=== PATIENT | female | born 1970 | race Caucasian/White ===

== ENCOUNTER 2017-02-11 10:35 | Emergency (ER) | payer BC ==
--- NOTE | 2017-02-11 11:02 | ERNOTE ---
Chest Pain/Cardiac HPI Date of Service: 02/11/17 Time Seen by Provider: 02/11/17 10:47 Source: patient Exam Limitations: no limitations Allergies/Adverse Reactions: Allergies Penicillins Allergy (Mild, Verified 02/11/17 10:52) Hives Sulfa (Sulfonamide Antibiotics) Allergy (Mild, Verified 02/11/17 10:52) Hives Home Medications: HOME MEDICATIONS Atenolol [Tenormin (Atenolol)] 100 mg PO DAILY 08/30/13 [Last Taken Unknown] Cyclobenzaprine HCl [Flexeril] 10 mg PO HS 08/30/13 [Last Taken Unknown] Topiramate [Topiragen] 200 mg PO DAILY 08/30/13 [Last Taken Unknown] buPROPion HCL [Wellbutrin] 100 mg PO DAILY 08/30/13 [Last Taken Unknown] Gabapentin 300 mg PO BID 09/15/13 [Last Taken Unknown] HYDROmorphone HCL [Dilaudid] 2 mg PO Q6H PRN 09/18/13 [Last Taken Unknown] Narrative: Pt. comes in with c/o mid-sternal chest pain since 0300 this am. Pt. states that her pain is dull and started as abdominal pain and settled in her chest and has remained. Pt. states that when her pain started she became anxious and was breathing harder and then her fingertips and face became tingling and numb and she developed a headache. Pt. states that the numbness, tingling, anxiety, and headache has resolved but she still has the chest heaviness and abd discomfort. Pt. also states that she had some nausea after all of the other symptoms started resolving but she does not have nausea now. Pt. also states that she has not had a bowel movement for over a week and she has had constipation for all of her life and was also diagnosed with IBS. 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 Review of Systems - Review of Systems Constitutional: Present: diaphoresis. Absent: fever, chills, weakness, fatigue , malaise, decreased activity level EYE: Present: no symptoms reported ENT: Present: no symptoms reported Respiratory: Present: no symptoms reported. Absent: shortness of breath, cough , wheezing Cardiology: Present: chest pain, other - fast heart beat. Absent: palpitations , syncope, edema, claudication Gastrointestinal/Abdominal: Present: nausea, constipation, abdominal pain, eating less, drinking less. Absent: vomiting, diarrhea Genitourinary: Present: no symptoms reported. Absent: frequency, pain, dysuria , decreased urinary output Musculoskeletal: Present: no symptoms reported. Absent: back pain, neck pain, joint pain Skin: Present: no symptoms reported. Absent: rash, change in color Neurological: Present: anxiety, headache, numbness, tingling. Absent: depressed , dizziness/light-headedness, weakness, tremors All Other Systems: All systems neg except as marked - Patient's Past Medical History Patient History - Medical: Anxiety, Chronic Pain, Depression, Migraines, Other - Factor V Patient History - Cardiac/Respiratory: Deep Vein Thrombosis - upper extremity Physical Exam - Physical Exam General Appearance: Present: wd/wn, alert, no apparent distress Eye Exam: Normal inspection: bilateral, PERRL: bilateral, EOMI: bilateral Ears, Nose, Throat: Present: normal ENT inspection, normal pharynx Neck: Present: normal inspection, nontender. Absent: lymphadenopathy (R), lymphadenopathy (L) Respiratory: Present: no respiratory distress, normal breath sounds, no accessory muscle use, chest nontender, lungs clear. 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 Absent: pallor, skin rash ED Progress - Date and Time Seen: Date and Time: 02/11/17 12:46 Feel that chest pressure is from the intrabdominal pressure secondary to the severe constipation and fecal impaction. Educated pt. on constipation and am going to have pt. take miralax daily without PRN. - Results and Orders Patient's Lab Results:: I have reviewed the patient's lab results. - Vital Signs Patient's Vital Signs:: I have reviewed the patient's vital signs. - EKG EKG: NSR EKG read: Reviewed by me EKG Comments: interpretted by Dr Blue - X-Ray X-Ray #1 X-Ray: chest Interpretation: Interp. by me X-ray Comments: no acute X-Ray #2 X-Ray: abdomen Interpretation: Interp. by me X-ray Comments: severe stool retention non obstructive bowel gas pattern - Progress/Reassessment Progress:: Improved Departure - Departure Clinical Impression: Anxiety Constipation Qualifiers: Constipation type: unspecified constipation type Qualified Code(s): K59.00 - Constipation, unspecified Disposition: Home self-care Condition: Good Instructions: Constipation, Adult, [id number], Panic Attacks, [id number] Additional Instructions: Please take miralax daily and do not stop unless instructed by your primary provider, and follow up with primary provider in 2-3 days. Referrals: Navdeep Kumar MD [Primary Care Provider] -
--- OUTSIDE RECORDS SUMMARY | 2017-02-11 11:03 | XMS REPORT | Continuity of Care Document ---
:1970 Author Organization [facility] ([facility]) Address [address] [place] [address] Phone [phone] Care Team Providers Name Role Phone Stephanie Grant Primary Care Provider [phone] Source Comments This disclosure is being made pursuant to the Care Everywhere program, applicable federal and state laws, and may not contain all informaitonavailable regarding this patient.[facility] ([facility]) Active Allergies and Adverse Reactions Allergen Noted Date Severity Reactions Comments Penicillins 08/06/2010 Urticaria (Hives) Sulfa (Sulfonamide Antibiotics) 08/06/2010 Urticaria (Hives) Current Medications Prescription Sig. Disp. Refills Start Date End Date Status topiramate (TOPAMAX) 200 mg Take 200 mg by Active tablet mouth daily. ALPRAZolam (XANAX) 1 mg Take 1 mg by Active tablet mouth at bedtime as needed. norethindrone-ethinyl Take 1 Tab by Active estradiol (GILDESS FE) 1 mouth daily. mg-20 mcg per tablet hyoscyamine (HYOMAX) 0.125 Take 125 mcg by Active mg tablet mouth every 4 hours as needed. hydrochlorothiazide Take 12.5 mg by Active (MICROZIDE) 12.5 mg capsule mouth daily. almotriptan (AXERT) 12.5 mg Take 12.5 mg by Active tablet mouth once when needed. may repeat in 2 hours if needed atenolol (TENORMIN) 50 mg Take 50 mg by Active tablet mouth daily. cyclobenzaprine (FLEXERIL) Take 10 mg by Active 10 mg tablet mouth 3 times daily as needed. Indications: Muscle Spasm nabumetone (RELAFEN) 750 mg Take 1 Tab by 180 Tab 0 08/06/2010 Active tablet mouth 2 times daily. Indications: wrist and neck pain Active Problems Problem Noted Date HTN (hypertension) 08/06/2010 Migraine headache 08/06/2010 Carpal tunnel syndrome 08/06/2010 Social History Tobacco Use Types Packs/Day Years Used Date Never Smoker Alcohol Use Drinks/Week oz/Week Comments Yes one glass of wine a month Last Filed Vital Signs Vital Sign Reading Time Taken Blood Pressure 132/71 08/06/2010 8:56 AM CDT Pulse 74 08/06/2010 8:56 AM CDT Temperature 36.8 C (98.2 F) 08/06/2010 8:56 AM CDT Respiratory Rate - - Height 1.66 m (5' 5.35") 08/06/2010 8:56 AM CDT Weight 51 kg (112 lb 7 oz) 08/06/2010 8:56 AM CDT Body Mass Index 18.51 08/06/2010 8:56 AM CDT Oxygen Saturation - - Plan of Care Health Maintenance Due Date Last Done Comments Hepatitis B Vaccine (1 of 3 - Primary Series) 1970 Tdap Vaccine 1980 Lipid Disorder Screening 1987 MMR Vaccine 1987 Td Vaccine 1987 Cervical Cancer Screening 1999 Mammogram 2009 Influenza Vaccine: Seasonal (#1) 05/16/2016 Results from Last 3 Months Not on file
[2017-02-11 11:07] LABS: Hematocrit 40.6 % (37.0-47.0); Hemoglobin 13.5 gm/dL (12.5-16.0); Mean Cell Volume 93.5 fl (78-100); Mean Corpuscular Hemoglobin 31.1 pg (27-31); Mean Corpuscular Hgb Conc 33.3 g/dl (32-36); Mean Platelet Volume 10.6 fl (6.0-9.5); Neutrophil # 3.9 K/mm3 (1.3-6.0); Neutrophil % 70.3 % (42-75.0); Platelet Count 186 K/mm3 (150-450); Red Blood Count 4.34 M/mm3 (4.2-5.4); Red Cell Distribution Width 12.8 % (11.5-14.0); White Blood Count 5.6 K/mm3 (4.0-10.5)
[2017-02-11 11:20] LABS: Prothrombin Time (Patient) 10.7 Seconds (9.4-11.4)
[2017-02-11 11:25] LABS: ALT 24 U/L (19-67); AST 19 U/L (0-48); Albumin * 4.1 gm/dl (3.4-5.0); Alkaline Phosphatase * 67 U/L (50-170); Amylase * 63 U/L (25-115); Anion Gap 11.1 mmol/L (6.8-13.8); BUN/Creatinine Ratio 16.5 (9.0-21.6); Bilirubin, Total 0.5 mg/dL (0.0-1.1); Blood Urea Nitrogen 18 mg/dL (3-23); Ca. Corrected For Albumin 8.8 mg/dL (8.4-10.2); Calcium * 9.2 mg/dL (7.9-10.9); Carbon Dioxide 28.9 mmol/L (24-32.6); Chloride 108 mmol/L (97-106); Glucose * 111 mg/dL (70-110); Lipase 226 U/L (73-393); Sodium 144 mmol/L (132-142); Total Protein 7.1 gm/dL (6.2-8.2); Troponin I Less than 0.017 ng/ml (0.00-0.10)
[2017-02-11 11:27] LABS: INR 1.03 INR (0.90-1.10); Partial Thrombolplastin Time 21.6 Seconds (24-32)
[2017-02-11] MEDS ORDERED: NORMAL SALINE 1,000 ML IV ONE (11:34)
[2017-02-11 11:43] LABS: Urine Appearance Clear; Urine Bilirubin Negative (NEGATIVE); Urine Blood Negative /ul (NEGATIVE); Urine Color Yellow; Urine Ketone Negative (NEGATIVE); Urine Nitrite Negative (NEGATIVE); Urine Protein Negative (NEGATIVE); Urine Urobilinogen Normal (NORMAL)
[2017-02-11 11:44] LABS: Urine Bacteria None Seen; Urine RBC None Seen /hpf (0-5); Urine WBC 0-5 /hpf (0-5)
[2017-02-11 14:42] VITALS: BP 113/73
== END 2017-02-11 14:30 | disposition home or self-care (01) ==
LOC: ER 10:35
DX: K59.00 Constipation, unspecified (principal); F41.9 Anxiety disorder, unspecified; Z86.718 Personal history of other venous thrombosis and embolism; D68.51 Activated protein C resistance; F32.9 Major depressive disorder, single episode, unspecified